=== PATIENT | female | born 1950 | race Caucasian/White ===

== ENCOUNTER 2017-10-28 01:18 | Inpatient (IN) | payer OTHER ==
[~2017-10-28] VITALS: Ht 167.6 cm; Wt 175.0 kg
[2017-10-28] VITALS (21 sets, daily range): BP systolic 0–154; BP diastolic 0–114
[~2017-10-28 01:18] MED LIST: ADULT LOW DOSE81 M1 PO; ASPIR-LOW81 MG PO; ASPIRIN E.C.81 M1 PO; CARDIZEM CD,CA300 MG PO; CARDIZEM CD240 MG PO; CARDIZEM30 MG PO; COLACE100 MG PO; COUMADIN,JANTOVE6 MG PO; Coumadin,Jantoven PO; DILTIAZEM ER300 M2 PO; DOCUSATE SODIU100 MG PO; DUONEB 2.5-0.5 M3 ML IH; Diflucan PO; EMS NITROSTAT0.4 M1 SL; ENDOCET 5-3251 EACH PO; FUROSEMIDE40 MG PO; GABAPENTIN100 MG PO; GLIPIZIDE5 MG PO; GLUCOTROL5 MG PO; K-DUR10 MEQ PO; K-DUR20 MEQ PO; KETOCONAZOLE60 GM TP; LASIX40 MG PO; LEVOTHROID50 MCG PO; LEVOTHYROXINE50 MCG PO; LIDEX60 G1 TP; LISINOPRIL2.5 MG PO; LISINOPRIL5 MG PO; LO-DOSE ASPIRIN81 M1 PO; LOVENOX40 MG/0.4 SC; Levaquin PO; Levothroid,Synthroid PO; METOPROLOL SUCC50 MG PO; NITROGLYCERIN0.4 MG SL; NITROSTAT,NITR0.4 M1 SL; NITROSTAT0.4 MG SL; NOVOLOG PE100 UNITS/ SC; PERCOCET 5/31 TABLET PO; POTASSIUM CHLO10 ME4 PO; PRAVACHOL40 MG PO; PRAVASTATIN SOD40 MG PO; PREDNISONE20 MG PO; PRINIVIL5 MG PO; SYNTHROID50 MCG PO; TOPROL XL50 MG PO; TYLENOL REGULA325 MG PO; VANCOCIN HCL125 MG PO; XARELTO20 MG PO; XOPENEX1.25 MG/0. AEROSOL; ZESTRIL5 MG PO
[2017-10-28 01:58] LABS: BASOPHIL (%) 0.2 % (0-1); EOSINOPHIL (%) 0.1 % (0-5); HEMOGLOBIN 12.1 G/DL (11.9-15.5); LYMPHOCYTE (%) 9.4 % (15-42); LYMPHOCYTE COUNT 1.5 K/uL (1.0-2.8); MCH 26.7 PG (29.0-34.0); MCHC 30.3 G/DL (30.0-36.0); MCV 88.1 FL (83-99); MONOCYTE (%) 3.9 % (3-12); MONOCYTE COUNT 0.6 K/uL (0-0.8); NEUTROPHIL (%) 85.4 % (45-76); NEUTROPHIL COUNT 13.9 K/uL (1.8-6.4); NRBC (%) 0.2 /100 WBC (0-0); PLATELET COUNT 451 K/uL (156-360); RBC DIS.WIDTH-CV 15.2 % (11.8-14.6); RED BLOOD COUNT 4.54 M/uL (3.80-5.20); WHITE BLOOD COUNT 16.2 K/uL (4.1-10.2)
[2017-10-28 02:12] LABS: CHLORIDE 89 mEq/L (99-109); POTASSIUM 4.4 mEq/L (3.7-5.4); SODIUM 134 mEq/L (136-147)
[2017-10-28 02:13] LABS: GLUCOSE 219 mg/dL (70-99)
[2017-10-28 02:17] LABS: CREATININE 1.2 mg/dL (0.6-1.3); GFR ESTIMATE (CALCULATED) 48 mL/min/
[2017-10-28 02:18] LABS: UREA NITROGEN (BUN) 24 mg/dL (9-23)
[2017-10-28 02:21] LABS: TROP-I INTERPRETATION NEGATIVE; TROPONIN-I 0.01 ng/mL (0.0-0.30)
[2017-10-28 07:29] LABS: APPEARANCE CLOUDY ((CLEAR)); BILIRUBIN NEGATIVE; BLOOD NEGATIVE; COLOR AMBER ((YELLOW)); GLUCOSE (STRIP) NEGATIVE; KETONES NEGATIVE; LEUKOCYTES NEGATIVE; NITRITE NEGATIVE; PROTEIN (STRIP) 30; SPECIFIC GRAVITY 1.024 (1.000-1.030)
[2017-10-28] MEDS ORDERED: LASIX20 MG PO (07:44)
[2017-10-28] MEDS ORDERED: MIRALAX17 GM PO (07:46)
[2017-10-28] MEDS ORDERED: ATIVAN0.5 MG PO (07:46)
[2017-10-28] MEDS ORDERED: SENNA S TABLET1 EACH PO (07:47)
[2017-10-28] MEDS ORDERED: TRAMADOL HCL50 MG PO (07:48)
[2017-10-28] MEDS ORDERED: VITAMIN D2000 UNIT PO (07:49)
[2017-10-28] MEDS ORDERED: PAIN RELIEF650 MG PO (07:49)
[2017-10-28] MEDS ORDERED: ADVAIR 250/501 DISK IH (07:53)
[2017-10-28 09:06] LABS: BACTERIA 2+ /HPF; EPITHELIAL CELLS 1+ /HPF; MUCUS 1+ /LPF; RED BLOOD CELLS 0-5 /HPF (0-5); UCUL ADDED? YES; WHITE BLOOD CELLS 0-5 /HPF (0-5)
[2017-10-28] MEDS ORDERED: CELEXA20 MG PO (10:05)
[2017-10-28] MEDS ORDERED: CLOBETASOL PROP60 GM TP (10:07)
[2017-10-28] MEDS ORDERED: VOLTAREN 1% GE100 GM TD (10:08)
[2017-10-28] MEDS ORDERED: DUONEB 2.5-0.5 M3 ML AEROSOL (10:09)
[2017-10-28] MEDS ORDERED: GLUCOSAMINE HC500 MG PO (10:10)
[2017-10-28] MEDS ORDERED: ATARAX,VISTARIL25 MG PO (10:10)
[2017-10-28] MEDS ORDERED: MICRO-K10 ME2 PO (10:11)
[2017-10-28 18:45] LABS: CHLORIDE 91 MEQ/L (99-109); CREATININE 0.8 MG/DL (0.6-1.3); GFR ESTIMATE (CALCULATED) > 59 mL/min/; GLUCOSE 128 mg/dL (70-99); POTASSIUM 3.9 MEQ/L (3.7-5.4); SODIUM 133 MEQ/L (136-147); UREA NITROGEN (BUN) 22 mg/dL (9-23)
[2017-10-29] VITALS (25 sets, daily range): BP systolic 76–172; BP diastolic 42–112
[2017-10-29 12:08] LABS: BASE EXCESS 7.1 mEq/L (-3 to +3); CARBOXY HGB 2.1 % (0-5); METHEMOGLOBIN 1.7 % (0-1.5); PO2 77 mm Hg (80-100)
[2017-10-29 12:09] LABS: COMMENTS - BLOOD GASES A+C+; DEVICE HFNC; O2 FLOW 8 L/MIN; PCO2 107 mm Hg (35-45); SITE LR; TOTAL RESP RATE 10 resp/min; pH 7.17 (7.35-7.45)
[2017-10-29 13:58] LABS: BICARBONATE 37.7 mEq/L (22-26); COMMENTS - BLOOD GASES A+C+; DEVICE 840; FI02 60 %; METHEMOGLOBIN 1.6 % (0-1.5); MODE A/C; PCO2 84 mm Hg (35-45); PO2 104 mm Hg (80-100); SITE LR; pH 7.26 (7.35-7.45)
[2017-10-29 13:59] LABS: MECHANICAL RATE 16 resp/min; PEEP 5 CM/H20; TIDAL VOLUME 400 ML
[2017-10-30] VITALS (22 sets, daily range): BP systolic 84–133; BP diastolic 38–87
[2017-10-30 08:29] LABS: MCH 26.4 PG (29.0-34.0); MCHC 31.3 G/DL (30.0-36.0); MCV 84.4 FL (83-99); NRBC (%) 0.3 /100 WBC (0-0); PLATELET COUNT 338 K/uL (156-360); RBC DIS.WIDTH-SD 46.1 % (39-53); RED BLOOD COUNT 3.79 M/uL (3.80-5.20); WHITE BLOOD COUNT 8.9 K/uL (4.1-10.2)
[2017-10-30 09:00] LABS: ALBUMIN 2.5 G/DL (3.2-4.8); ALKALINE PHOSPHATASE 94 IU/L (3-129); ALT (GPT) 17 IU/L (3-49); AST (GOT) 29 IU/L (2-34); CHLORIDE 91 MEQ/L (99-109); GFR ESTIMATE (CALCULATED) > 59 mL/min/; MAGNESIUM 2.1 mg/dl (1.3-2.7); PHOSPHORUS 2.1 mg/dL (2.5-4.9); POTASSIUM 3.6 MEQ/L (3.7-5.4); SODIUM 137 MEQ/L (136-147); TOTAL BILIRUBIN 0.7 MG/DL (0.0-1.0); UREA NITROGEN (BUN) 23 mg/dL (9-23)
[2017-10-30 09:19] LABS: GLUCOSE 91 mg/dL (70-99)
[2017-10-30 13:50] LABS: BASE EXCESS 13.6 mEq/L (-3 to +3); BICARBONATE 38.3 mEq/L (22-26); METHEMOGLOBIN 1.5 % (0-1.5)
[2017-10-30 13:51] LABS: COMMENTS - BLOOD GASES A+C+; DEVICE 840; FI02 30 %; MECHANICAL RATE 24 resp/min; MODE A/C; PCO2 48 mm Hg (35-45); PEEP 5 CM/H20; PO2 53 mm Hg (80-100); SITE RR; TIDAL VOLUME 400 ML; pH 7.51 (7.35-7.45)
[2017-10-31] VITALS (22 sets, daily range): BP systolic 78–128; BP diastolic 50–89
[2017-10-31 05:22] LABS: BASE EXCESS 16.7 mEq/L (-3 to +3); BICARBONATE 42.9 mEq/L (22-26); CARBOXY HGB 1.8 % (0-5); COMMENTS - BLOOD GASES C+A+; DEVICE VENT; FI02 40 %; MECHANICAL RATE 20 resp/min; METHEMOGLOBIN 1.7 % (0-1.5); MODE AC; PCO2 59 mm Hg (35-45); PO2 65 mm Hg (80-100); SITE LR; TOTAL RESP RATE 20 resp/min; pH 7.47 (7.35-7.45)
[2017-10-31 05:23] LABS: PEEP 5 CM/H20; TIDAL VOLUME 400 ML
[2017-10-31 06:46] LABS: CHLORIDE 92 MEQ/L (99-109); CREATININE 0.9 MG/DL (0.6-1.3); GFR ESTIMATE (CALCULATED) > 59 mL/min/; GLUCOSE 87 mg/dL (70-99); PHOSPHORUS 2.6 mg/dL (2.5-4.9); SODIUM 141 MEQ/L (136-147); UREA NITROGEN (BUN) 18 mg/dL (9-23)
[2017-10-31 06:49] LABS: POTASSIUM 2.7 MEQ/L (3.7-5.4)
[2017-10-31 10:13] LABS: BASOPHIL (%) 0.4 % (0-1); EOSINOPHIL (%) 2.4 % (0-5); EOSINOPHIL COUNT 0.2 K/uL (0-0.3); HEMATOCRIT 34.9 % (36.0-46.0); HEMOGLOBIN 10.8 G/DL (11.9-15.5); IMMATURE GRANULOCYTE (%) 1.5 % (0.0-0.7); LYMPHOCYTE (%) 17.1 % (15-42); LYMPHOCYTE COUNT 1.4 K/uL (1.0-2.8); MCH 26.3 PG (29.0-34.0); MCHC 30.9 G/DL (30.0-36.0); MCV 84.9 FL (83-99); MONOCYTE (%) 6.8 % (3-12); MONOCYTE COUNT 0.6 K/uL (0-0.8); NEUTROPHIL (%) 71.8 % (45-76); NEUTROPHIL COUNT 5.9 K/uL (1.8-6.4); PLATELET COUNT 366 K/uL (156-360); RBC DIS.WIDTH-CV 14.9 % (11.8-14.6); RBC DIS.WIDTH-SD 45.7 % (39-53); RED BLOOD COUNT 4.11 M/uL (3.80-5.20); WHITE BLOOD COUNT 8.2 K/uL (4.1-10.2)
[2017-10-31 17:15] LABS: BASOPHIL (%) 0.4 % (0-1); EOSINOPHIL (%) 2.1 % (0-5); EOSINOPHIL COUNT 0.2 K/uL (0-0.3); HEMOGLOBIN 11.7 G/DL (11.9-15.5); IMMATURE GRANULOCYTE (%) 1.5 % (0.0-0.7); LYMPHOCYTE (%) 14.7 % (15-42); LYMPHOCYTE COUNT 1.5 K/uL (1.0-2.8); MCH 26.1 PG (29.0-34.0); MCHC 30.8 G/DL (30.0-36.0); MCV 84.8 FL (83-99); MONOCYTE (%) 10.3 % (3-12); MONOCYTE COUNT 1.1 K/uL (0-0.8); NEUTROPHIL COUNT 7.2 K/uL (1.8-6.4); NRBC (%) 0.3 /100 WBC (0-0); PLATELET COUNT 355 K/uL (156-360); RBC DIS.WIDTH-SD 46.1 % (39-53); RED BLOOD COUNT 4.48 M/uL (3.80-5.20); WHITE BLOOD COUNT 10.2 K/uL (4.1-10.2)
[2017-10-31 17:31] LABS: CHLORIDE 96 MEQ/L (99-109); CREATININE 0.9 MG/DL (0.6-1.3); GFR ESTIMATE (CALCULATED) > 59 mL/min/; GLUCOSE 89 mg/dL (70-99); MAGNESIUM 1.9 mg/dl (1.3-2.7); POTASSIUM ND MEQ/L (3.7-5.4); SODIUM 140 MEQ/L (136-147); UREA NITROGEN (BUN) 16 mg/dL (9-23)
[2017-10-31 18:30] LABS: POTASSIUM 4.9 MEQ/L (3.7-5.4)
[2017-11-01] VITALS (24 sets, daily range): BP systolic 95–145; BP diastolic 56–107
[2017-11-01 11:36] LABS: BASOPHIL (%) 0.5 % (0-1); EOSINOPHIL (%) 3.3 % (0-5); EOSINOPHIL COUNT 0.3 K/uL (0-0.3); HEMATOCRIT 36.8 % (36.0-46.0); HEMOGLOBIN 11.1 G/DL (11.9-15.5); IMMATURE GRANULOCYTE (%) 2.1 % (0.0-0.7); LYMPHOCYTE (%) 15.6 % (15-42); LYMPHOCYTE COUNT 1.3 K/uL (1.0-2.8); MCH 25.8 PG (29.0-34.0); MCHC 30.2 G/DL (30.0-36.0); MCV 85.4 FL (83-99); MONOCYTE (%) 6.9 % (3-12); MONOCYTE COUNT 0.6 K/uL (0-0.8); NEUTROPHIL (%) 71.6 % (45-76); NEUTROPHIL COUNT 5.8 K/uL (1.8-6.4); PLATELET COUNT 358 K/uL (156-360); RBC DIS.WIDTH-CV 15.2 % (11.8-14.6); RBC DIS.WIDTH-SD 47.4 % (39-53); RED BLOOD COUNT 4.31 M/uL (3.80-5.20); WHITE BLOOD COUNT 8.1 K/uL (4.1-10.2)
[2017-11-01 12:36] LABS: CHLORIDE 95 MEQ/L (99-109); CREATININE 0.9 MG/DL (0.6-1.3); GFR ESTIMATE (CALCULATED) > 59 mL/min/; PHOSPHORUS 3.5 mg/dL (2.5-4.9); SODIUM 145 MEQ/L (136-147); UREA NITROGEN (BUN) 17 mg/dL (9-23)
[2017-11-01 12:37] LABS: GLUCOSE 117 mg/dL (70-99); POTASSIUM 3.3 MEQ/L (3.7-5.4)
[2017-11-02] VITALS (23 sets, daily range): BP systolic 84–135; BP diastolic 55–88
[2017-11-03] VITALS (23 sets, daily range): BP systolic 91–125; BP diastolic 48–79
[2017-11-04] VITALS (24 sets, daily range): BP systolic 89–129; BP diastolic 48–89
[2017-11-05] VITALS (17 sets, daily range): BP systolic 100–180; BP diastolic 49–88
[2017-11-06] VITALS (12 sets, daily range): BP systolic 95–142; BP diastolic 50–104
[2017-11-06 07:41] LABS: BASOPHIL (%) 0.4 % (0-1); BASOPHIL COUNT 0.1 K/uL (0-0.1); EOSINOPHIL (%) 0.5 % (0-5); EOSINOPHIL COUNT 0.1 K/uL (0-0.3); HEMATOCRIT 41.3 % (36.0-46.0); HEMOGLOBIN 11.3 G/DL (11.9-15.5); IMMATURE GRANULOCYTE (%) 1.1 % (0.0-0.7); LYMPHOCYTE COUNT 0.9 K/uL (1.0-2.8); MCHC 27.4 G/DL (30.0-36.0); MONOCYTE (%) 3.8 % (3-12); MONOCYTE COUNT 0.7 K/uL (0-0.8); NEUTROPHIL (%) 89.2 % (45-76); NEUTROPHIL COUNT 16.4 K/uL (1.8-6.4); PLATELET COUNT 441 K/uL (156-360); RBC DIS.WIDTH-CV 15.6 % (11.8-14.6); RBC DIS.WIDTH-SD 55.6 % (39-53); RED BLOOD COUNT 4.35 M/uL (3.80-5.20); WHITE BLOOD COUNT 18.4 K/uL (4.1-10.2)
[2017-11-06 07:42] LABS: MCV 94.9 FL (83-99)
[2017-11-06 08:24] LABS: CHLORIDE 98 MEQ/L (99-109); CREATININE 1.1 MG/DL (0.6-1.3); GFR ESTIMATE (CALCULATED) 53 mL/min/; GLUCOSE 135 mg/dL (70-99); POTASSIUM 3.4 MEQ/L (3.7-5.4); SODIUM 151 MEQ/L (136-147); UREA NITROGEN (BUN) 22 mg/dL (9-23)
[2017-11-06 08:26] LABS: CARBON DIOXIDE (BICARBONATE) > 40.0 MEQ/L (20-31)
[2017-11-06 08:54] LABS: BASE EXCESS 21.3 mEq/L (-3 to +3); CARBOXY HGB 2.4 % (0-5); PO2 56 mm Hg (80-100)
[2017-11-06 08:56] LABS: BICARBONATE 52.9 mEq/L (22-26); PCO2 110 mm Hg (35-45)
[2017-11-06 08:57] LABS: COMMENTS - BLOOD GASES A+C+; DEVICE 8; SITE RR; TOTAL RESP RATE 20 resp/min; pH 7.29 (7.35-7.45)
[2017-11-06 10:41] LABS: BASE EXCESS 21.5 mEq/L (-3 to +3); BICARBONATE 51.8 mEq/L (22-26); CARBOXY HGB 2.1 % (0-5); METHEMOGLOBIN 1.6 % (0-1.5); PO2 51 mm Hg (80-100); pH 7.34 (7.35-7.45)
[2017-11-06 10:42] LABS: COMMENTS - BLOOD GASES A+C+; DEVICE 980 PB; FI02 40 %; MODE SPONT; PCO2 96 mm Hg (35-45); PEEP 5 CM/H20; PRES. SUPPORT 15 CM/H2O; SITE RR; TOTAL RESP RATE 16 resp/min
[2017-11-06 18:16] LABS: BICARBONATE 53.6 mEq/L (22-26); CARBOXY HGB 1.9 % (0-5); METHEMOGLOBIN 1.7 % (0-1.5); PCO2 104 mm Hg (35-45); PO2 90 mm Hg (80-100); SITE RR; pH 7.32 (7.35-7.45)
[2017-11-06 18:17] LABS: COMMENTS - BLOOD GASES A+C+; DEVICE HFNC; O2 FLOW 12 L/MIN; TOTAL RESP RATE 17 resp/min
[2017-11-07] VITALS (20 sets, daily range): BP systolic 108–147; BP diastolic 58–97
[2017-11-07 05:49] LABS: BASOPHIL (%) 0.1 % (0-1); EOSINOPHIL (%) 0 % (0-5); HEMATOCRIT 35.8 % (36.0-46.0); HEMOGLOBIN 10.2 G/DL (11.9-15.5); IMMATURE GRANULOCYTE (%) 0.6 % (0.0-0.7); LYMPHOCYTE (%) 4.4 % (15-42); LYMPHOCYTE COUNT 0.5 K/uL (1.0-2.8); MCH 26.2 PG (29.0-34.0); MCHC 28.5 G/DL (30.0-36.0); MCV 91.8 FL (83-99); MONOCYTE (%) 1.3 % (3-12); MONOCYTE COUNT 0.2 K/uL (0-0.8); NEUTROPHIL (%) 93.6 % (45-76); NEUTROPHIL COUNT 10.7 K/uL (1.8-6.4); PLATELET COUNT 402 K/uL (156-360); RBC DIS.WIDTH-CV 15.4 % (11.8-14.6); RBC DIS.WIDTH-SD 51.9 % (39-53); WHITE BLOOD COUNT 11.4 K/uL (4.1-10.2)
[2017-11-07 06:28] LABS: CHLORIDE 96 MEQ/L (99-109); GFR ESTIMATE (CALCULATED) > 59 mL/min/; GLUCOSE 160 mg/dL (70-99); POTASSIUM 3.5 MEQ/L (3.7-5.4); SODIUM 151 MEQ/L (136-147); UREA NITROGEN (BUN) 26 mg/dL (9-23)
[2017-11-07 06:29] LABS: CARBON DIOXIDE (BICARBONATE) > 40.0 MEQ/L (20-31)
[2017-11-07 08:41] LABS: BASE EXCESS 25.5 mEq/L (-3 to +3); BICARBONATE 53.8 mEq/L (22-26); METHEMOGLOBIN 1.5 % (0-1.5); PCO2 81 mm Hg (35-45); PO2 72 mm Hg (80-100); pH 7.43 (7.35-7.45)
[2017-11-07 08:42] LABS: COMMENTS - BLOOD GASES A+C+; DEVICE PB 980; FI02 50 %; MODE SPONT; PEEP 10 CM/H20; PRES. SUPPORT 15 CM/H2O; SITE RR; TOTAL RESP RATE 18 resp/min
[2017-11-08] VITALS (22 sets, daily range): BP systolic 0–143; BP diastolic 0–95
[2017-11-08 10:23] LABS: BICARBONATE 55.7 mEq/L (22-26); CARBOXY HGB 1.8 % (0-5); METHEMOGLOBIN 1.7 % (0-1.5); PCO2 82 mm Hg (35-45); PO2 71 mm Hg (80-100); pH 7.44 (7.35-7.45)
[2017-11-08 10:24] LABS: COMMENTS - BLOOD GASES A+C+; SITE LR
[2017-11-08 10:25] LABS: DEVICE HF; O2 FLOW 10 L/MIN; TOTAL RESP RATE 20 resp/min
[2017-11-09] VITALS (17 sets, daily range): BP systolic 93–145; BP diastolic 49–107
[2017-11-09 05:27] LABS: BASE EXCESS 26.1 mEq/L (-3 to +3); BICARBONATE 56.9 mEq/L (22-26); CARBOXY HGB 1.9 % (0-5); COMMENTS - BLOOD GASES C+A+; DEVICE HFNC; FI02 60 %; METHEMOGLOBIN 1.5 % (0-1.5); O2 FLOW 55 L/MIN; PCO2 103 mm Hg (35-45); PO2 64 mm Hg (80-100); SITE RR; pH 7.35 (7.35-7.45)
[2017-11-09 07:05] LABS: BASOPHIL (%) 0.1 % (0-1); EOSINOPHIL (%) 0 % (0-5); HEMATOCRIT 40.1 % (36.0-46.0); HEMOGLOBIN 11.6 G/DL (11.9-15.5); IMMATURE GRANULOCYTE (%) 0.5 % (0.0-0.7); LYMPHOCYTE (%) 3.8 % (15-42); LYMPHOCYTE COUNT 0.4 K/uL (1.0-2.8); MCHC 28.9 G/DL (30.0-36.0); MCV 89.9 FL (83-99); MONOCYTE (%) 2.5 % (3-12); MONOCYTE COUNT 0.3 K/uL (0-0.8); NEUTROPHIL (%) 93.1 % (45-76); NEUTROPHIL COUNT 10.5 K/uL (1.8-6.4); PLATELET COUNT 397 K/uL (156-360); RBC DIS.WIDTH-CV 15.5 % (11.8-14.6); RBC DIS.WIDTH-SD 51.3 % (39-53); RED BLOOD COUNT 4.46 M/uL (3.80-5.20); WHITE BLOOD COUNT 11.3 K/uL (4.1-10.2)
[2017-11-09 07:28] LABS: ALBUMIN 2.7 G/DL (3.2-4.8); ALKALINE PHOSPHATASE 95 IU/L (3-129); ALT (GPT) 6 IU/L (3-49); AST (GOT) 10 IU/L (2-34); CHLORIDE 92 MEQ/L (99-109); CREATININE 1.1 MG/DL (0.6-1.3); GFR ESTIMATE (CALCULATED) 53 mL/min/; MAGNESIUM 2.5 mg/dl (1.3-2.7); PHOSPHORUS 4.7 mg/dL (2.5-4.9); POTASSIUM 3.5 MEQ/L (3.7-5.4); SODIUM 148 MEQ/L (136-147); TOTAL BILIRUBIN 0.5 MG/DL (0.0-1.0); TOTAL PROTEIN 6.5 G/DL (6.4-8.3)
[2017-11-09 07:30] LABS: CARBON DIOXIDE (BICARBONATE) > 40.0 MEQ/L (20-31); GLUCOSE 247 mg/dL (70-99); UREA NITROGEN (BUN) 67 mg/dL (9-23)
[2017-11-10] VITALS (20 sets, daily range): BP systolic 93–140; BP diastolic 63–97
[2017-11-10 06:48] LABS: BASOPHIL (%) 0.1 % (0-1); EOSINOPHIL (%) 0 % (0-5); HEMATOCRIT 39.3 % (36.0-46.0); HEMOGLOBIN 11.5 G/DL (11.9-15.5); IMMATURE GRANULOCYTE (%) 0.5 % (0.0-0.7); LYMPHOCYTE (%) 2.2 % (15-42); LYMPHOCYTE COUNT 0.3 K/uL (1.0-2.8); MCH 25.6 PG (29.0-34.0); MCHC 29.3 G/DL (30.0-36.0); MCV 87.3 FL (83-99); MONOCYTE (%) 2.3 % (3-12); MONOCYTE COUNT 0.3 K/uL (0-0.8); NEUTROPHIL (%) 94.9 % (45-76); NEUTROPHIL COUNT 10.8 K/uL (1.8-6.4); PLATELET COUNT 386 K/uL (156-360); RBC DIS.WIDTH-CV 15.4 % (11.8-14.6); RBC DIS.WIDTH-SD 48.7 % (39-53); WHITE BLOOD COUNT 11.4 K/uL (4.1-10.2)
[2017-11-10 07:25] LABS: ALBUMIN 2.6 G/DL (3.2-4.8); ALKALINE PHOSPHATASE 92 IU/L (3-129); ALT (GPT) 7 IU/L (3-49); AST (GOT) 11 IU/L (2-34); CARBON DIOXIDE (BICARBONATE) > 40.0 MEQ/L (20-31); CHLORIDE 88 MEQ/L (99-109); GFR ESTIMATE (CALCULATED) > 59 mL/min/; GLUCOSE 216 mg/dL (70-99); MAGNESIUM 2.5 mg/dl (1.3-2.7); PHOSPHORUS 4.2 mg/dL (2.5-4.9); POTASSIUM 3.6 MEQ/L (3.7-5.4); SODIUM 149 MEQ/L (136-147); TOTAL BILIRUBIN 0.6 MG/DL (0.0-1.0); TOTAL PROTEIN 6.2 G/DL (6.4-8.3); UREA NITROGEN (BUN) 74 mg/dL (9-23)
[2017-11-10 19:23] LABS: CREATINE KINASE < 10 IU/L (1-294)
[2017-11-11] VITALS (16 sets, daily range): BP systolic 100–140; BP diastolic 47–101
[2017-11-11 07:14] LABS: BASOPHIL (%) 0.2 % (0-1); EOSINOPHIL (%) 0 % (0-5); HEMATOCRIT 40.5 % (36.0-46.0); HEMOGLOBIN 11.8 G/DL (11.9-15.5); IMMATURE GRANULOCYTE (%) 0.5 % (0.0-0.7); LYMPHOCYTE (%) 2.2 % (15-42); LYMPHOCYTE COUNT 0.3 K/uL (1.0-2.8); MCH 25.7 PG (29.0-34.0); MCHC 29.1 G/DL (30.0-36.0); MCV 88.2 FL (83-99); MONOCYTE (%) 3.3 % (3-12); MONOCYTE COUNT 0.4 K/uL (0-0.8); NEUTROPHIL (%) 93.8 % (45-76); NEUTROPHIL COUNT 12.2 K/uL (1.8-6.4); PLATELET COUNT 363 K/uL (156-360); RBC DIS.WIDTH-CV 15.9 % (11.8-14.6); RBC DIS.WIDTH-SD 50.7 % (39-53); RED BLOOD COUNT 4.59 M/uL (3.80-5.20)
[2017-11-11 07:42] LABS: ALBUMIN 2.4 G/DL (3.2-4.8); ALKALINE PHOSPHATASE 98 IU/L (3-129); ALT (GPT) 10 IU/L (3-49); AST (GOT) 15 IU/L (2-34); CHLORIDE 89 MEQ/L (99-109); GFR ESTIMATE (CALCULATED) > 59 mL/min/; GLUCOSE 241 mg/dL (70-99); MAGNESIUM 2.7 mg/dl (1.3-2.7); PHOSPHORUS 4.7 mg/dL (2.5-4.9); POTASSIUM 3.7 MEQ/L (3.7-5.4); SODIUM 143 MEQ/L (136-147); TOTAL BILIRUBIN 0.7 MG/DL (0.0-1.0); TOTAL PROTEIN 6.1 G/DL (6.4-8.3); UREA NITROGEN (BUN) 76 mg/dL (9-23)
[2017-11-11 07:49] LABS: CARBON DIOXIDE (BICARBONATE) > 40.0 MEQ/L (20-31)
[2017-11-12 03:45] VITALS: BP 124/56
[2017-11-12 06:01] LABS: HEMATOCRIT 41.1 % (36.0-46.0); HEMOGLOBIN 12.2 G/DL (11.9-15.5); MCH 26.4 PG (29.0-34.0); MCHC 29.7 G/DL (30.0-36.0); PLATELET COUNT 335 K/uL (156-360); RBC DIS.WIDTH-CV 16.1 % (11.8-14.6); RBC DIS.WIDTH-SD 51.8 % (39-53); RED BLOOD COUNT 4.62 M/uL (3.80-5.20); WHITE BLOOD COUNT 18.8 K/uL (4.1-10.2)
[2017-11-12 06:53] LABS: CHLORIDE 93 MEQ/L (99-109); CREATININE 0.9 MG/DL (0.6-1.3); GFR ESTIMATE (CALCULATED) > 59 mL/min/; GLUCOSE 212 mg/dL (70-99); POTASSIUM 4.4 MEQ/L (3.7-5.4); SODIUM 143 MEQ/L (136-147); UREA NITROGEN (BUN) 71 mg/dL (9-23)
[2017-11-12 06:58] LABS: CARBON DIOXIDE (BICARBONATE) > 40.0 MEQ/L (20-31)
[2017-11-12 09:28] VITALS: BP 126/63
[2017-11-12 12:45] VITALS: BP 122/74
[2017-11-12 15:32] VITALS: BP 124/68
[2017-11-12 19:50] VITALS: BP 118/57
[2017-11-13 00:03] VITALS: BP 111/56
[2017-11-13 04:59] VITALS: BP 111/67
[2017-11-13 05:42] LABS: HEMATOCRIT 36.7 % (36.0-46.0); HEMOGLOBIN 11.1 G/DL (11.9-15.5); MCH 25.9 PG (29.0-34.0); MCHC 30.2 G/DL (30.0-36.0); MCV 85.5 FL (83-99); PLATELET COUNT 272 K/uL (156-360); RBC DIS.WIDTH-CV 16.1 % (11.8-14.6); RBC DIS.WIDTH-SD 50.1 % (39-53); RED BLOOD COUNT 4.29 M/uL (3.80-5.20); WHITE BLOOD COUNT 17.1 K/uL (4.1-10.2)
[2017-11-13 06:06] LABS: CHLORIDE 95 MEQ/L (99-109); CREATININE 0.9 MG/DL (0.6-1.3); GFR ESTIMATE (CALCULATED) > 59 mL/min/; POTASSIUM 4.2 MEQ/L (3.7-5.4); SODIUM 141 MEQ/L (136-147); UREA NITROGEN (BUN) 62 mg/dL (9-23)
[2017-11-13 06:07] LABS: GLUCOSE 104 mg/dL (70-99)
[2017-11-13 13:30] VITALS: BP 116/62
[2017-11-13 15:54] VITALS: BP 115/69
[2017-11-13 20:30] VITALS: BP 113/59
[2017-11-14 00:45] VITALS: BP 124/62
[2017-11-14 04:52] VITALS: BP 124/61
[2017-11-14 05:21] LABS: HEMATOCRIT 36.3 % (36.0-46.0); MCH 25.8 PG (29.0-34.0); MCHC 30.3 G/DL (30.0-36.0); MCV 85.2 FL (83-99); PLATELET COUNT 241 K/uL (156-360); RBC DIS.WIDTH-CV 16.3 % (11.8-14.6); RBC DIS.WIDTH-SD 49.8 % (39-53); RED BLOOD COUNT 4.26 M/uL (3.80-5.20); WHITE BLOOD COUNT 13.7 K/uL (4.1-10.2)
[2017-11-14 05:53] LABS: CHLORIDE 95 MEQ/L (99-109); CREATININE 0.8 MG/DL (0.6-1.3); GFR ESTIMATE (CALCULATED) > 59 mL/min/; GLUCOSE 99 mg/dL (70-99); POTASSIUM 4.2 MEQ/L (3.7-5.4); SODIUM 138 MEQ/L (136-147); UREA NITROGEN (BUN) 52 mg/dL (9-23)
[2017-11-14 09:00] VITALS: BP 111/65
[2017-11-14] MEDS ORDERED: CARDIZEM60 MG PO (10:32)
[2017-11-14] MEDS ORDERED: PREDNISONE20 MG PO (10:34)
[2017-11-14 12:00] VITALS: BP 108/50
== END 2017-11-14 16:30 | DRG 207 ==
LOC: EME → EDBD 01:18 → EME 01:18 → EDSEX 01:18 → 4WEST 03:13 → 4EAST 03:13 → EDOF 03:13 → ENRESERV 03:15 → 4WEST 04:08 → CANRESERV 11-05 10:27 → ENRESERV 11-05 10:27 → CANRESERV 11-05 12:03 → ENRESERV 11-05 16:02 → 2EASTP 11-05 17:24 → 4WEST 11-06 08:59 → ENRESERV 11-11 10:47 → 4EAST 11-11 12:48
PROVIDERS: Emergency Medicine; Hospitalist; Internal Medicine; Internal Medicine Critical Care Medicine; Physician Assistant; Specialist
DX: J96.21 Acute and chronic respiratory failure with hypoxia (principal); J15.6 Pneumonia due to other Gram-negative bacteria; J98.11 Atelectasis; E66.2 Morbid (severe) obesity with alveolar hypoventilation; Z68.44 Body mass index [BMI] 60.0-69.9, adult; N17.9 Acute kidney failure, unspecified; J44.1 Chronic obstructive pulmonary disease with (acute) exacerbation; J44.0 Chronic obstructive pulmonary disease with (acute) lower respiratory infection; E87.4 Mixed disorder of acid-base balance; E87.0 Hyperosmolality and hypernatremia; F33.9 Major depressive disorder, recurrent, unspecified; J90 Pleural effusion, not elsewhere classified; J96.22 Acute and chronic respiratory failure with hypercapnia; R13.10 Dysphagia, unspecified; K80.20 Calculus of gallbladder without cholecystitis without obstruction; K21.9 Gastro-esophageal reflux disease without esophagitis; I87.8 Other specified disorders of veins; I87.2 Venous insufficiency (chronic) (peripheral); I89.0 Lymphedema, not elsewhere classified; T17.990A Other foreign object in respiratory tract, part unspecified in causing asphyxiation, initial encounter; I50.9 Heart failure, unspecified; I48.91 Unspecified atrial fibrillation; I27.20 Pulmonary hypertension, unspecified; I11.0 Hypertensive heart disease with heart failure; E78.5 Hyperlipidemia, unspecified; E11.65 Type 2 diabetes mellitus with hyperglycemia; E03.9 Hypothyroidism, unspecified; Y95 Nosocomial condition; E65 Localized adiposity; Z74.01 Bed confinement status; Z79.01 Long term (current) use of anticoagulants; Z87.442 Personal history of urinary calculi; Z86.711 Personal history of pulmonary embolism; Z79.84 Long term (current) use of oral hypoglycemic drugs
CPT/HCPCS: 36600; 70551; 71045; 71260; 76000; 80048; 80048 91; 80053; 80150 90; 80202; 81003; 82550; 82803; 82948; 83605; 83735; 83880; 84100; 84132; 84145 90; 84238 90; 84443; 84484; 84999; 85025; 85025 91; 85027; 87040; 87070; 87077; 87086; 87186; 87205; 87641; 92526 GN; 92610 GN; 93005; 93306; 94002; 94003; 94010; 94640; 94640 76; 94667; 94668; 94760; 94799; 99202; 99281; 99285; C1753; J0278; J0456; J0692; J1120; J1160; J1815; J1940; J2060; J2250; J2543; J2704; J2920; J3243; J3370; J3480; J7040; J7050; J7070; J7608; J7644; S0028